=== PATIENT | female | born 1950 | race Caucasian/White ===

== ENCOUNTER → 2018-07-09 12:34 | Outpatient (CLI) | payer MEDICARE, OTHER, SELFPAY | PROVIDERS: PCP Nurse Practitioner Family; Visit Provider Nurse Practitioner Family | DX: E07.9 Disorder of thyroid, unspecified (principal); Z78.0 Asymptomatic menopausal state; Z82.62 Family history of osteoporosis | CPT/HCPCS: 77080 ==

== ENCOUNTER → 2018-10-27 08:10 | Outpatient (CLI) | payer MEDICARE, OTHER, SELFPAY ==
--- NOTE | 2018-10-27 | DI.MG.S_ITS ---
BILATERAL DIGITAL SCREENING MAMMOGRAM 3D/2D WITH CAD: 10/27/2018 CLINICAL: Routine screening. Comparison is made to exams dated: 08/08/2017 mammogram, 08/30/2015 mammogram, and 08/17/2014 mammogram - [facility]. There are scattered fibroglandular elements in both breasts. Current study was also evaluated with a Computer Aided Detection (CAD) system. There is a mole marker on both breasts. No significant masses, calcifications, or other findings are seen in either breast. There has been no significant interval change. IMPRESSION: NEGATIVE There is no mammographic evidence of malignancy. A 1 year screening mammogram is recommended. This exam was interpreted at Station ID: [id number]. NOTE: For mammograms, a report in lay terms will be sent to the patient. Approximately 15% of breast malignancies will not be visualized mammographically. In the management of a palpable breast mass, a negative mammogram must not discourage biopsy of a clinically suspicious lesion. Electronically Signed By: Shakeel lozano/reginald:10/27/2018 18:25:44 letter sent: Normal Exam ACR BI-RADS Category 1: Negative 3341F
== END ==
PROVIDERS: PCP Nurse Practitioner Family; Visit Provider Nurse Practitioner Family
DX: Z12.31 Encounter for screening mammogram for malignant neoplasm of breast (principal)
CPT/HCPCS: 77063; 77067

== ENCOUNTER → 2021-02-17 09:24 | Outpatient (CLI) | payer MEDICARE, OTHER, SELFPAY ==
--- NOTE | 2021-02-17 | DI.US.S_ITS ---
LIMITED ULTRASOUND OF LEFT BREAST AND AXILLA: 02/17/2021 CLINICAL: Palpable left breast lump. Comparison is made to exams dated: 02/17/2021 mammogram, 10/27/2018 mammogram, 08/08/2017 mammogram, 03/09/2016 mammogram, 09/08/2015 ultrasound, and 09/08/2015 mammogram - [facility]. Color flow and real-time ultrasound of the left breast axilla were performed. Rodriguez scale images of the real-time examination were reviewed. Two hyperechoic masses at 11:30. Largest 1.2 cm x 0.8 cm x 0.6 cm oval mass with a circumscribed margin in the left breast at 11:30 o'clock anterior depth 3 cm from the nipple. This oval mass is hyperechoic. This correlates as palpated and to the reported pain. Smaller adjacent mass measures 0.9 cm x 0.7 cm x 0.3 cm. No significant abnormalities were seen sonographically in the left axilla. IMPRESSION: PROBABLY BENIGN Hyperechoic oval masses in the left breast are consistent with lipomas or fat necrosis and are probably benign. A follow-up ultrasound in 3 months is recommended. Exam findings were conveyed to the patient. Patient is advised to monitor for significant change. Clinical follow-up as needed. This exam was interpreted at Station ID: [id number]. Electronically Signed By: Stan Vila M.D. [facility] [place]/:02/17/2021 12:05:29 letter sent: Followup Recommended Ultrasound BI-RADS: 3 Probably benign
--- NOTE | 2021-02-17 | DI.MG.S_ITS ---
BILATERAL DIGITAL DIAGNOSTIC MAMMOGRAM 3D/2D: 02/17/2021 CLINICAL: Left breast lump. Comparison is made to exams dated: 10/27/2018 mammogram, 08/08/2017 mammogram, 08/30/2015 mammogram, 03/09/2016 mammogram, and 08/17/2014 mammogram - [facility]. There are scattered fibroglandular elements in both breasts. No significant masses, calcifications, or other findings are seen in either breast. IMPRESSION: INCOMPLETE: NEEDS ADDITIONAL IMAGING EVALUATION No mammographic evidence of malignancy. A targeted ultrasound of the left breast area of concern is recommended and will immediately follow. This exam was interpreted at Station ID: [id number]. NOTE: For mammograms, a report in lay terms will be sent to the patient. Approximately 15% of breast malignancies will not be visualized mammographically. In the management of a palpable breast mass, a negative mammogram must not discourage biopsy of a clinically suspicious lesion. Electronically Signed By: Stan Vila M.D. [facility]/:02/17/2021 10:38:38 ACR BI-RADS Category 0: Incomplete 3340F
== END ==
PROVIDERS: PCP Internal Medicine; Referring Provider Internal Medicine; Visit Provider Internal Medicine
DX: R92.8 Other abnormal and inconclusive findings on diagnostic imaging of breast (principal); N63.22 Unspecified lump in the left breast, upper inner quadrant
CPT/HCPCS: 76642; 77066; G0279

== ENCOUNTER → 2021-04-11 12:07 | Outpatient (CLI) | payer MEDICARE, OTHER, SELFPAY ==
--- NOTE | 2021-04-11 12:11 | DI.US.S_ITS ---
PROCEDURE: US THYROID INDICATIONS: GOITER TECHNIQUE: Real-time scanning was performed of the thyroid gland, with image documentation. COMPARISON: None. FINDINGS: Right: Thyroid lobe measures 3.0 x 1.3 x 0.9 cm, and is diffusely heterogeneous in echotexture. Left: Thyroid lobe measures 2.9 x 1.2 x 1.0 cm, and is diffusely heterogeneous in echotexture. Isthmus: 5 mm thick. IMPRESSION: Diffusely heterogeneous appearance of the thyroid gland bilaterally. This can be seen with entities such as Alia's disease. Dictated by: Chantell Buck M.D. on 04/11/2021 at 15:44 Approved by: Chantell Buck M.D. on 04/11/2021 at 15:46
== END ==
PROVIDERS: PCP Internal Medicine; Referring Provider Internal Medicine Endocrinology, Diabetes & Metabolism; Visit Provider Internal Medicine Endocrinology, Diabetes & Metabolism
DX: E04.9 Nontoxic goiter, unspecified (principal)
CPT/HCPCS: 76536

== ENCOUNTER → 2021-05-19 07:38 | Outpatient (CLI) | payer MEDICARE, OTHER, SELFPAY ==
--- NOTE | 2021-05-19 | DI.US.S_ITS ---
ULTRASOUND OF LEFT BREAST: 05/19/2021 CLINICAL: Patient returns today to evaluate two focal asymmetries in the left breast. Comparison is made to exams dated: 02/17/2021 ultrasound, 02/17/2021 mammogram, 10/27/2018 mammogram, 08/08/2017 mammogram, 03/09/2016 mammogram, and 09/08/2015 [facility]. Color flow and real-time ultrasound of the left breast were performed. Rodriguez scale images of the real-time examination were reviewed. The previously described 1.2 cm x 0.8 cm x 0.6 cm oval mass with a circumscribed margin in the left breast at 11 o'clock anterior depth 3 cm from the nipple is no longer seen. This had correlated as palpated and to the reported pain previously. No significant abnormalities were seen sonographically in the left breast. IMPRESSION: BENIGN There is no sonographic evidence of malignancy. Previously described superficial mass has resolved. Recommend clinical follow up for recurrent symptoms, or development of any clinically suspicious findings. Return to annual mammogram screening schedule is recommended. Findings and recommendations were conveyed to the patient during today's evaluation. This exam was interpreted at Station ID: [id number]. Electronically Signed By: Reynaldo Kowalski M.D. [facility]/:05/19/2021 08:44:49 letter sent: Normal Exam Ultrasound BI-RADS: 2 Benign
== END ==
PROVIDERS: PCP Internal Medicine; Referring Provider Internal Medicine; Visit Provider Internal Medicine
DX: R92.8 Other abnormal and inconclusive findings on diagnostic imaging of breast (principal); N64.89 Other specified disorders of breast
CPT/HCPCS: 76642

== ENCOUNTER → 2022-05-23 15:04 | Outpatient (CLI) | payer MEDICARE, OTHER, SELFPAY ==
--- NOTE | 2022-05-23 15:07 | DI.RAD.S_ITS ---
PROCEDURE: XR HIP W PEL IF DONE RT 2V INDICATIONS: RIGHT HIP PAIN TECHNIQUE: Two views of the hip were acquired. COMPARISON: None. FINDINGS: Bones: No acute fracture or dislocation. Moderate to severe bilateral hip degenerative changes. Soft tissues: No suspicious soft tissue calcifications or masses. IMPRESSION: Moderate to severe bilateral hip osteoarthritis. Dictated by: Gume Shaw M.D. on 05/23/2022 at 18:57 Approved by: Gume Shaw M.D. on 05/23/2022 at 18:58
--- NOTE | 2022-05-23 15:07 | DI.RAD.S_ITS ---
PROCEDURE: XR LUMBAR SPINE 2-3V INDICATIONS: RIGHT HIP PAIN TECHNIQUE: <3> views of the lumbar spine were acquired. COMPARISON: None. FINDINGS: Bones: <5> [id number] vertebrae are present. No spondylolisthesis. No acute fracture identified. Mild to moderate overall spondylotic changes, with disc space height loss and facet arthropathy. Slight leftward spinal curvature may be positional. Soft tissues: Above average stool burden. No suspicious soft tissue calcifications. Partially visualized hip degenerative changes . IMPRESSION: [id number] overall spondylosis of the lumbar spine. Dictated by: Gume Shaw M.D. on 05/23/2022 at 18:55 Approved by: Gume Shaw M.D. on 05/23/2022 at 18:57
== END ==
PROVIDERS: PCP Internal Medicine; Referring Provider Internal Medicine; Visit Provider Internal Medicine
DX: M25.551 Pain in right hip (principal); M47.816 Spondylosis without myelopathy or radiculopathy, lumbar region
CPT/HCPCS: 72100; 73502

== ENCOUNTER → 2022-06-04 12:41 | Outpatient (CLI) | payer MEDICARE, OTHER, SELFPAY ==
--- NOTE | 2022-06-04 | DI.MG.S_ITS ---
BILATERAL DIGITAL SCREENING MAMMOGRAM 3D/2D WITH CAD: 06/04/2022 CLINICAL: Routine screening. Comparison is made to exams dated: 02/17/2021 mammogram, 10/27/2018 mammogram, 08/08/2017 mammogram, 08/30/2015 mammogram, and 03/09/2016 mammogram - [facility]. There are scattered fibroglandular elements in both breasts. Current study was also evaluated with a Computer Aided Detection (CAD) system. No significant masses, calcifications, or other findings are seen in either breast. There has been no significant interval change. IMPRESSION: NEGATIVE There is no mammographic evidence of malignancy. A 1 year screening mammogram is recommended. Based on the Tyrer Cuzick model (a risk assessment model) the patient's lifetime risk is 7.7% and her 10 year risk is 4.9%. According to the ACR, ACS, and NCCN guidelines, an annual breast MRI exam along with mammogram is recommended if the patient's lifetime risk is 20% or greater. This exam was interpreted at Station ID: [id number]. NOTE: For mammograms, a report in lay terms will be sent to the patient. Approximately 15% of breast malignancies will not be visualized mammographically. In the management of a palpable breast mass, a negative mammogram must not discourage biopsy of a clinically suspicious lesion. Electronically Signed By: Stan hall/reginald:06/08/2022 08:57:01 letter sent: Normal Exam ACR BI-RADS Category 1: Negative 3341F
== END ==
PROVIDERS: Family Provider Internal Medicine; PCP Internal Medicine; Referring Provider Internal Medicine; Visit Provider Internal Medicine
DX: Z12.31 Encounter for screening mammogram for malignant neoplasm of breast (principal)
CPT/HCPCS: 77063; 77067

== ENCOUNTER → 2023-06-04 08:43 | Outpatient (CLI) | payer MEDICARE, OTHER, SELFPAY | PROVIDERS: Family Provider Internal Medicine; PCP Internal Medicine; Referring Provider Psychiatry & Neurology Neurology; Visit Provider Psychiatry & Neurology Neurology | DX: G31.84 Mild cognitive impairment of uncertain or unknown etiology (principal) | CPT/HCPCS: 36415 ==

== ENCOUNTER → 2023-06-05 14:38 | Outpatient (CLI) | payer MEDICARE, OTHER, SELFPAY ==
--- NOTE | 2023-06-05 14:40 | DI.MG.S_ITS ---
BILATERAL DIGITAL SCREENING MAMMOGRAM 3D/2D WITH CAD: 06/05/2023 CLINICAL: Routine screening. Comparison is made to exams dated: 06/04/2022 mammogram, 02/17/2021 mammogram, and 10/27/2018 mammogram - [facility]. There are scattered areas of fibroglandular density in both breasts (category b / 25%-50% glandular tissue). Current study was also evaluated with a Computer Aided Detection (CAD) system. No significant masses, calcifications, or other findings are seen in either breast. There has been no significant interval change. IMPRESSION: NEGATIVE There is no mammographic evidence of malignancy. A 1 year screening mammogram is recommended. Based on the Tyrer Cuzick model (a risk assessment model) the patient's lifetime risk is 7.3% and her 10 year risk is 5.0%. According to the ACR, ACS, and NCCN guidelines, an annual breast MRI exam along with mammogram is recommended if the patient's lifetime risk is 20% or greater. This exam was interpreted at Station ID: [id number]. NOTE: For mammograms, a report in lay terms will be sent to the patient. Approximately 15% of breast malignancies will not be visualized mammographically. In the management of a palpable breast mass, a negative mammogram must not discourage biopsy of a clinically suspicious lesion. Electronically Signed By: Riri banegas/reginald:06/05/2023 17:16:26 letter sent: Normal Exam ACR BI-RADS Category 1: Negative 3341F
== END ==
PROVIDERS: Family Provider Internal Medicine; PCP Internal Medicine; Referring Provider Internal Medicine; Visit Provider Internal Medicine
DX: Z12.31 Encounter for screening mammogram for malignant neoplasm of breast (principal)
CPT/HCPCS: 77063; 77067

== ENCOUNTER → 2023-06-18 08:09 | Outpatient (CLI) | payer MEDICARE, OTHER, SELFPAY ==
[2023-06-18 09:47] LABS: Free T4, Direct Thyroxine 0.84 ng/dL (0.78-2.19)
[2023-06-18 10:14] LABS: Thyroid Stimulating Hormone 0.503 uIU/mL (0.47-4.68)
== END ==
PROVIDERS: Family Provider Internal Medicine; PCP Internal Medicine; Referring Provider Internal Medicine Endocrinology, Diabetes & Metabolism; Visit Provider Internal Medicine Endocrinology, Diabetes & Metabolism
DX: E03.9 Hypothyroidism, unspecified (principal); E03.8 Other specified hypothyroidism; E06.3 Autoimmune thyroiditis
CPT/HCPCS: 36415; 84439; 84443; 84481

== ENCOUNTER → 2023-12-25 12:44 | Outpatient (CLI) | payer MEDICARE, OTHER, SELFPAY ==
[2023-12-25 14:50] LABS: Free T3, Triiodothyronine Free 5.06 pg/mL (2.77-5.27)
[2023-12-25 15:08] LABS: Thyroid Stimulating Hormone < 0.015 uIU/mL (0.47-4.68)
== END ==
LOC: LAB 12:47
PROVIDERS: Family Provider Internal Medicine; PCP Internal Medicine; Referring Provider Internal Medicine Endocrinology, Diabetes & Metabolism; Visit Provider Internal Medicine Endocrinology, Diabetes & Metabolism
DX: E03.8 Other specified hypothyroidism (principal); E06.3 Autoimmune thyroiditis
CPT/HCPCS: 36415; 84439; 84443; 84481

== ENCOUNTER → 2024-03-26 07:59 | Outpatient (CLI) | payer MEDICARE, OTHER, SELFPAY ==
[2024-03-26 10:35] LABS: Free T4, Direct Thyroxine 0.95 ng/dL (0.78-2.19)
[2024-03-26 10:47] LABS: Cortisol AM (Before 10AM) 11.8 ug/dL (4.46-22.7)
[2024-03-26 10:49] LABS: Thyroid Stimulating Hormone 0.198 uIU/mL (0.47-4.68)
[2024-03-27 07:16] LABS: Adrenocorticotropic Hormone 16.7 pg/mL (7.2-63.3)
== END ==
PROVIDERS: Family Provider Internal Medicine; PCP Internal Medicine; Referring Provider Internal Medicine Endocrinology, Diabetes & Metabolism; Visit Provider Internal Medicine Endocrinology, Diabetes & Metabolism
DX: E03.8 Other specified hypothyroidism (principal); E06.3 Autoimmune thyroiditis
CPT/HCPCS: 36415; 82024; 82533; 84305; 84439; 84443

== ENCOUNTER → 2025-03-03 08:49 | Outpatient (CLI) | payer MEDICARE, OTHER, SELFPAY ==
[2025-03-03 10:20] LABS: Free T4, Direct Thyroxine 1.42 ng/dL (0.78-2.19)
[2025-03-03 10:34] LABS: Thyroid Stimulating Hormone < 0.015 uIU/mL (0.47-4.68)
== END ==
PROVIDERS: Family Provider Internal Medicine; PCP Family Medicine; Referring Provider Internal Medicine Endocrinology, Diabetes & Metabolism; Visit Provider Internal Medicine Endocrinology, Diabetes & Metabolism
DX: E06.3 Autoimmune thyroiditis (principal)
CPT/HCPCS: 36415; 84439; 84443

== ENCOUNTER 2025-07-27 07:57 | Emergency (ER) | payer MEDICARE, OTHER, SELFPAY ==
--- NOTE | 2025-07-27 08:00 | ED.EYEPROB ---
HPI - Eye Problem General Stated complaint: Dark red sclera Time Seen by Provider: 07/27/25 07:58 History of Present Illness HPI Narrative: Patient is a 75-year-old female past medical history of hyperlipidemia, comes into the ED from home for evaluation of blood to the conjunctiva. States that she woke up and noticed some redness to the inner part of her left eye. Does wear contacts and glasses but denies any actual visual changes denies any blood thinners denies any trauma or falls denies any actual eye pain or discomfort. Denies any other symptoms at this time. Related Data Home Medications ?Medication ?Instructions ?Recorded ?Confirmed aspirin 81 mg tablet,delayed 81 mg PO QPM 07/26/25 07/26/25 release (Adult Low Dose Aspirin) atorvastatin 10 mg tablet 10 mg PO QPM 07/26/25 07/26/25 coenzyme Q10 100 mg capsule 200 mg PO DAILY 07/26/25 07/26/25 (CoQ-10) multivitamin with minerals-folic 1 tab PO DAILY 07/26/25 07/26/25 acid 80 mcg chewable tablet (Centrum Adult 50 Plus) omega-3 fatty acids 1,000 mg 1,000 mg PO DAILY 07/26/25 07/26/25 capsule Allergies Allergy/AdvReac Type Severity Reaction Status Date / Time shellfish derived AdvReac Verified 07/27/25 08:07 tree nut AdvReac Verified 07/27/25 08:07 Review of Systems Review of Systems Narrative: General: Denies fever, chills, weight loss HEENT: Positive Blood/redness of the left eye, Denies headache, eye drainage, eye irritation, head trauma, sore throat, voice change Cardiovascular: Denies any chest pain, palpitations, tachycardia Respiratory: Denies any shortness of breath, cough, wheeze, stridor GI/: Denies any abdominal pain, nausea, vomiting, diarrhea, bright red blood per rectum, melanotic stools, urinary frequency, urinary retention, dysuria, hematuria MSK: Denies any joint pain, muscle pains, swelling Skin: Denies any rashes, lesions, discoloration Neuro: Denies any headache, lightheadedness, dizziness, fainting, weakness Psych: Denies SI/HI Exam Narrative Exam Narrative: General: Cooperative, well-developed, not in acute distress HEENT: Blood noted to the medial aspect of the left eye consistent with subconjunctival hemorrhage, does not cross the iris all people Normocephalic, atraumatic, PERRLA, normal sclera, eyelids normal Neck: Active full range of motion, atraumatic Chest: Normal to inspection, negative crepitus, no overlying erythema ecchymosis Respiratory: Normal respiratory effort, not in acute respiratory distress, clear to auscultation bilaterally negative cough, wheeze, tachypnea, rhonchi, rales Cardiology: Regular rate rhythm negative gallop, murmur, rubs GI/: No tenderness to palpation, soft, non rigid, normal to inspection, exam deferred MSK: Full active range of motion in all 4 extremities, atraumatic, no tenderness to palpation of any bony prominences Skin: No rashes or lesions noted Neuro: Alert awake oriented x3, moves all 4 extremities spontaneously, cranial nerves intact, able to answer all questions appropriately follows commands appropriately Psych: Cooperative, negative suicidal or homicidal ideations MDM - Eye Problem MDM Narrative Medical decision making narrative: 75-year-old female with a past medical history of hyperlipidemia presenting for blood noted to the inner aspect of her left eye, states that she woke up and noticed this discoloration, she does wear contacts and glasses but denies any trauma denies any visual disturbances, denies any extraocular in pain with eye motion. On my exam it does appear to be consistent with a subconjunctival hemorrhage. She denies any blood thinners denies any trauma. Patient had normal intra-ocular eye pressures as well as no abnormal fluorescein uptake, symptoms are most likely secondary to just spontaneous subconjunctival hemorrhage. Patient was instructed to follow up primary care and Ophthalmology as needed in outpatient setting, strict return precautions given she verbalized understanding of this and agrees to being discharged home with outpatient follow up Discharge Plan Departure Patient Disposition: Home Clinical Impression: Subconjunctival hemorrhage Instructions: DI for Subconjunctival Hemorrhage Activity Restrictions/Additional Instructions: Please follow up with the primary care and Ophthalmology as needed in outpatient setting Please read the discharge instructions sheet carefully and bring all papers to all doctor follow-up visits, as it may contain information that your doctor may want to see. Disease processes change and evolve, if your symptoms worsen or if you develop any new symptoms that are concerning to you please return for evaluation. Your evaluation today does not show any evidence of any life-threatening/serious illnesses requiring admission to the hospital or surgery. Please follow-up with your doctor for re-evaluation in approximately 1 day. Seek immediate medical attention for any worrisome symptoms. *If you do not have a primary care provider please contact the [facility] Resource line at [phone]. They will ask some questions about your medical history and help get you set up with a doctor in the community. Prescriptions: No Action atorvastatin 10 mg tablet 10 mg PO QPM aspirin [Adult Low Dose Aspirin] 81 mg tablet,delayed release (DR/EC) 81 mg PO QPM Centrum Adult 50 Plus 80 mcg tablet,chewable 1 tab PO DAILY omega-3 fatty acids 1,000 mg capsule 1,000 mg PO DAILY coenzyme Q10 [CoQ-10] 100 mg capsule 200 mg PO DAILY Referrals: Sharon Martinez MD [Physician, Ophthalmology] Margie Fonseca ARNP [Primary Care Provider, Family Practice] Stand Alone Forms: Patient Portal/API
[2025-07-27 08:07] VITALS: BP 167/67; PULSE 64; RESP 16; TEMP 36.6; O2SAT 100; BMI 21.4
[2025-07-27] MEDS: PROPARACAINE 0.5% OPHTH SOL 1 DROPS EYE-BOTH (08:12)
[2025-07-27] MEDS: FLUORESCEIN 1 MG STRIP EYE-BOTH (08:13)
== END 2025-07-27 08:23 | disposition home or self-care (01) ==
PROVIDERS: Emergency Provider Student in an Organized Health Care Education/Training Program; Family Provider Internal Medicine; PCP Internal Medicine
DX: H11.30 Conjunctival hemorrhage, unspecified eye (principal)
CPT/HCPCS: 99282